=== PATIENT | female | born 1980 | race Two or more races ===

== ENCOUNTER → 2018-02-04 | Outpatient (CLI) | payer OTHER ==
--- NOTE | 2018-02-05 09:56 | WOMENS IMAGING REPORT ---
EXAM DESCRIPTION: U/S BREAST UNILAT LIMITED COMPLETED DATE/TIME: 02/04/2018 9:44 am REASON FOR STUDY: N63.22 UNSPECIFIED LUMP IN THE LEFT BREAST, UPPER INNER QUADRANT N63.22 UNSPECIFI ED LUMP IN THE LEFT BREAST, UPPER INNER QUAD COMPARISON: None. TECHNIQUE: Real-time and static grayscale imaging performed of the left breast targeted to the area of clinical concern, palpable abnormality left breast 10 to 11 o'clock position. Selected color Dopp ler images recorded. LIMITATIONS: None. FINDINGS: MASS: No mass identified. Normal glandular tissue. OTHER: A well-circumscribed anechoic cyst with good acoustic through transmission is present, 8 x 6 m m in size. This is at the left breast 10 to 11 o'clock position in the area of palpable abnormality. This is a benign finding that requires no further specific followup. IMPRESSION: Benign left breast cyst correlates with palpable abnormality. BIRAD: 2 Benign findings. RECOMMENDATION: RECOMMENDED FOLLOW-UP: Follow-up as clinically indicated. COMMENT: The [employer] ([employer]) has developed recommendations for screening MRI of the breasts in certain patient populations, to be used in conjunction with mammography. Breast MRI s urveillance may be appropriate for women with more than 20% lifetime risk of developing breast cancer as determined by genetic testing, significant family history of the disease, or history of mantle r adiation for Hodgkins Disease. [employer] Practice Guidelines 2008. TECHNICAL DOCUMENTATION: JOB ID: [id number] [employer]- All Rights Reserved Reading location - IP/workstation name: [facility]
== END ==
LOC: WI 09:02
PROVIDERS: ATTEND Family Medicine
DX: N60.02 Solitary cyst of left breast (principal)
CPT/HCPCS: 76642